=== PATIENT | female | born 1990 | race Caucasian/White ===

== ENCOUNTER 2022-02-15 13:59 | Emergency (ER) | payer OTHER, BC ==
[2022-02-15] MEDS ORDERED: AMOX TR-K CLV1 EAC4 PO (15:30)
== END 2022-02-15 15:48 | disposition home or self-care (01) ==
LOC: ER1 13:59
DX: S60.221A Contusion of right hand, initial encounter (principal); S40.812A Abrasion of left upper arm, initial encounter; S40.811A Abrasion of right upper arm, initial encounter; I10 Essential (primary) hypertension; Z88.8 Allergy status to other drugs, medicaments and biological substances; W50.4XXA Accidental scratch by another person, initial encounter
CPT/HCPCS: 99282